=== PATIENT | female | born 1985 ===

== ENCOUNTER 2017-10-08 13:48 | Emergency (ER) | payer OTHER ==
[2017-10-08] MEDS ORDERED: Sodium Chloride 0.9% 1,000 ML IV ONE (14:17)
[2017-10-08] MEDS ORDERED: Sodium Chloride 0.9% 1,000 ML ONE (14:30)
[2017-10-08] MEDS ORDERED: Morphine 4 MG/ML VIAL ONE (14:30)
[2017-10-08 14:42] LABS: BASO # 0.1 K/uL (0.0-0.2); BASO % 0.8 % (0.0-2.0); EOS % 0.3 % (0.0-4.0); HEMOGLOBIN 8.6 g/dL (11.0-16.0); LYMPH # 1.9 K/uL (1.0-4.3); LYMPH % 20.3 % (20.0-40.0); MEAN CELL VOLUME 57.3 fL (81.0-99.0); MEAN CORPUSCULAR HEMOGLOBIN 18.2 pg (27.0-31.0); MEAN CORPUSCULAR HGB CONC 31.7 g/dL (33.0-37.0); MEAN PLATELET VOLUME 9.1 fL (7.2-11.7); MONO # 0.5 K/uL (0.0-0.8); MONO % 5.5 % (0.0-10.0); NEUT # 6.8 K/uL (1.8-7.0); NEUT % 73.1 % (50.0-75.0); RBC 4.76 Mil/uL (3.80-5.20); RED CELL DISTRIBUTION WIDTH 20.2 % (11.5-14.5); WHITE BLOOD COUNT 9.3 K/uL (4.8-10.8)
[2017-10-08 14:44] LABS: ALB/GLOB RATIO 1.2 (1.0-2.1); ALBUMIN 4.4 g/dL (3.5-5.0); ALT/SGPT 13 U/L (9-52); AST/SGOT 19 U/L (14-36); BLOOD UREA NITROGEN 14 mg/dL (7-17); CALCIUM 9.4 mg/dl (8.6-10.4); GFR AFRICAN-AMERICAN > 60; GFR NON-AFRICAN AMERICAN > 60
[2017-10-08 14:45] LABS: INR 1.2; PROTHROMBIN TIME 12.9 SECONDS (9.7-12.2)
--- NOTE | 2017-10-08 15:24 | US ---
HISTORY: ? ruptured ectopic COMPARISON: None available. TECHNIQUE: Transabdominal and transvaginal pelvic ultrasound was performed. FINDINGS: UTERUS: Measures 8.1 x 3.7 x 5.5 cm. Normal in size and appearance. No fibroid or other mass lesion seen. ENDOMETRIUM: Measures 8.4 mm in diameter. The central endometrial echo complex is normal in appearance. CERVIX: No cervical abnormality identified. RIGHT OVARY: Measures 4.0 x 2.2 x 3.6 cm. No solid mass. Normal flow. LEFT OVARY: Measures 5.5 x 3.9 x 4.8 cm. No solid mass. Normal flow. There is a 2.8 x 2.1 x 2.1 cm hypoechoic lesion with increased internal echoes in the left ovary. FREE FLUID: There is small amount of free fluid in the pelvis. OTHER FINDINGS: None. IMPRESSION: 1. No evidence for intrauterine gestation. 2. 2.8 x 2.1 x 2.1 cm complicated cyst in the left ovary. 3. Small amount of free fluid in the pelvis. No adnexal mass.
[2017-10-08] MEDS ORDERED: Oxycodone/Acetaminophen 5/325 mg Tab PO STA (15:51)
--- NOTE | 2017-10-08 15:59 | C.PDOC ---
History Of Present Illness 32-year-old female, presents to the emergency department with complaints of pelvic pain that is associated with her menstrual period. Patient has a Hx of ovarian cyst and removal in the past. Patient is trying to get . She denies any nausea/vomiting, fever or chills. h/o iron def anemia "many" years ago, took supplemental iron for a few years then d/c'd Colonscopy 2 yrs ago showed small internal polyps and hemorroids (in [place]) but no colon CA No iron supplements taken in the past 7 yrs. Denies dark stools and h/o gastritis/stomach issues. Unclear if ever had upper endoscopy. Time Seen by Provider: 10/08/17 14:14 Chief Complaint (Nursing): Abdominal Pain History Per: Patient History/Exam Limitations: no limitations Onset/Duration Of Symptoms: Days Current Symptoms Are (Timing): Still Present Past Medical History Reviewed: Historical Data, Nursing Documentation, Vital Signs Vital Signs: Last Vital Signs Temp 98.5 F 10/08/17 13:50 Pulse 86 10/08/17 14:30 Resp 14 10/08/17 14:30 BP 109/62 10/08/17 14:30 Pulse Ox 98 10/08/17 16:22 Family History: States: No Known Family Hx - Social History Hx Alcohol Use: No Hx Substance Use: No - Immunization History Hx Influenza Vaccination: No Review Of Systems Constitutional: Negative for: Fever, Chills Respiratory: Negative for: Shortness of Breath Gastrointestinal: Negative for: Nausea, Vomiting, Abdominal Pain Genitourinary: Positive for: Vaginal Bleeding Musculoskeletal: Negative for: Back Pain Physical Exam - Physical Exam Appears: Non-toxic, Other (moderate distress) Skin: Warm, Dry, Pale, No Rash Head: Atraumatic, Normacephalic Eye(s): bilateral: Normal Inspection, PERRL Nose: Normal Oral Mucosa: Moist Lips: Normal Appearing Neck: Normal ROM Chest: Symmetrical Cardiovascular: Rhythm Regular, No Murmur Respiratory: Normal Breath Sounds, No Accessory Muscle Use Gastrointestinal/Abdominal: No Guarding, No Rebound, Other (Exquisite tenderness to bilateral adenexa. FAST bedside exam with Dr Stanford shows no free fluid.) Extremity: Normal ROM, No Deformity, No Swelling Neurological/Psych: Oriented x3, Normal Speech ED Course And Treatment - Laboratory Results Result Diagrams: 10/08/17 14:27 10/08/17 14:27 O2 Sat by Pulse Oximetry: 98 Medical Decision Making Medical Decision Making: Case was discussed with Dr. Lacey Suazo, who reviewed results, states pt does not need emergent ER eval, and she can f.u outpt acute on chronic pelvic pain 2 cm L ovarian cyst probably NOT cause of pain verified by US d/c w Dr. Lacey Suazo consider endometriosis motrin/tramadol opt f/u ? constipation: Fecalization on R side empiric laxative trial today Iron def anemia colonocopy 2 yrs ago "normal" in [facility] h/o Fe Supplements "yrs ago" Restart Fe supplements outpatient f/u refer to GI Disposition Doctor Will See Patient In The: Office Counseled Patient/Family Regarding: Studies Performed, Diagnosis - Disposition Disposition: HOME/ ROUTINE Disposition Time: 17:53 Condition: GOOD Forms: [facility] (Yakut) - Clinical Impression Clinical Impression: Dysmenorrhea, Anemia - Scribe Statement The provider has reviewed the documentation as recorded by the Scribe (Wellington Gonzalez) All medical record entries made by the Scribe were at my direction and personally dictated by me. I have reviewed the chart and agree that the record accurately reflects my personal performance of the history, physical exam, medical decision making, and the department course for this patient. I have also personally directed, reviewed, and agree with the discharge instructions and disposition.
[2017-10-08] MEDS ORDERED: Oxycodone/Acetaminophen 5/325 mg Tab ONE (16:00)
[2017-10-08] MEDS ORDERED: Iohexol 300 100 ML IJ ONE (16:50)
[2017-10-08 17:10] LABS: SQUAMOUS EPITHIAL 1 /hpf (0-5); URINE BACTERIA OCC (<OCC); URINE BILIRUBIN NEGATIVE (NEGATIVE); URINE BLOOD 3+ (NEGATIVE); URINE CLARITY Hazy (Clear); URINE COLOR Yellow (YELLOW); URINE GLUCOSE (UA) NORMAL (Normal); URINE LEUKOCYTE ESTERASE NEG Leu/uL (Negative); URINE PROTEIN NEGATIVE (NEGATIVE); URINE UROBILINOGEN NORMAL mg/dL (0.2-1.0)
[2017-10-08 17:14] LABS: HCG,QUALITATIVE URINE NEGATIVE (NEGATIVE)
--- NOTE | 2017-10-08 17:40 | CT ---
PROCEDURE: CT Abdomen and Pelvis with contrast HISTORY: pelvic pain, Fe Def anemia, nl Colonosopy 2 yrs ag COMPARISON: None. TECHNIQUE: Contrast dose: 100 mL Omnipaque 300 Radiation dose: Total exam DLP = 292.77 mGy-cm. This CT exam was performed using one or more of the following dose reduction techniques: Automated exposure control, adjustment of the mA and/or kV according to patient size, and/or use of iterative reconstruction technique. FINDINGS: LOWER THORAX: Unremarkable. LIVER: Unremarkable. No gross lesion or ductal dilatation. GALLBLADDER AND BILE DUCTS: Unremarkable. PANCREAS: Unremarkable. No gross lesion or ductal dilatation. SPLEEN: Unremarkable. ADRENALS: Unremarkable. No mass. KIDNEYS AND URETERS: Unremarkable. No hydronephrosis. No solid mass. VASCULATURE: Unremarkable. No aortic aneurysm. BOWEL: Unremarkable. No obstruction. No gross mural thickening. APPENDIX: Normal appendix. PERITONEUM: Small amount fluid in the cul-de-sac. LYMPH NODES: Unremarkable. No enlarged lymph nodes. BLADDER: Nondistended REPRODUCTIVE: Normal uterus. Left ovarian cyst, 2.6 cm. Correlate with transvaginal pelvic ultrasound. BONES: No acute fracture. OTHER FINDINGS: None. IMPRESSION: 2.6 cm left ovarian cyst. Small amount of fluid in cul-de-sac. Correlate with transvaginal pelvic ultrasound. Otherwise unremarkable examination.
[2017-10-08 18:00] VITALS: BP 91/52; PULSE 59; RESP 18; TEMP 98.6; O2SAT 100
== END 2017-10-08 18:17 | disposition home or self-care (01) ==
LOC: C.ER 13:48
DX: N94.6 Dysmenorrhea, unspecified (principal); D64.9 Anemia, unspecified
CPT/HCPCS: 74177; 76830; 76856; 80053; 81001; 84702; 84703; 85025; 85610; 85730; 86850; 86900; 96374; 96375; 99285; J1885; J2270; J2405; J7030; Q9967

== ENCOUNTER 2018-06-17 09:03 | Outpatient (CLI) | payer OTHER | END 2018-06-17 09:04 | disposition home or self-care (01) | LOC: C.LAB 09:03 ==